=== PATIENT | female | born 1990 | race Caucasian/White ===

== ENCOUNTER 2019-02-03 13:31 | Emergency (ER) | payer MEDICAID, OTHER ==
[~2019-02-03] VITALS: Ht 160 cm; Wt 65.0 kg
[2019-02-03] MEDS ORDERED: triamcinolone acetonide 40mg/ml inj IM ONE (13:40)
[2019-02-03] MEDS ORDERED: PRED20TA PO (13:46)
[2019-02-03] MEDS ORDERED: TRIA15CR61 TOP (13:46)
[2019-02-03 14:13] VITALS: BP 144/87
== END 2019-02-03 14:15 | disposition home or self-care (01) ==
LOC: ER 13:31
DX: L25.5 Unspecified contact dermatitis due to plants, except food (principal)
CPT/HCPCS: 96372; 99283; J3301